=== PATIENT | male | born 1995 | race African-American/Black ===

== ENCOUNTER 2020-04-23 07:25 | Emergency (ER) | payer SELFPAY ==
[2020-04-23 07:41] VITALS: BP 144/83; PULSE 65; TEMP 96.5; BMI 20.7
[2020-04-23] MEDS ORDERED: LIDOCAINE HCL 2% JELLY (30 ML/TUBE) TP ONE (07:51)
[2020-04-23] MEDS ORDERED: LIDOCAINE HCL 2% JELLY (5 ML/TUBE) ONE (07:54)
== END 2020-04-23 08:00 | disposition home or self-care (01) ==
LOC: JER 07:25
DX: K02.9 Dental caries, unspecified (principal)
CPT/HCPCS: 99283-25